=== PATIENT | male | born 1990 | race African-American/Black ===

== ENCOUNTER 2018-04-22 23:29 | Observation (INO) | payer SELFPAY ==
[2018-04-23 00:06] LABS: #Basophils 0.1 thou/uL (0.0-0.2); #Eosinphils 0.2 thou/uL (0.0-0.7); #Lymphocytes 1.3 thou/uL (1.20-3.40); #Monocytes 0.5 thou/uL (0.11-0.59); #Neutrophils 3.4 thou/uL (1.40-6.50); %Basophils 1.3 % (0.0-1.0); %Eosinophils 3.1 % (0.0-10.0); %Lymphocytes 23.5 % (21.0-51.0); %Monocytes 9.4 % (0.0-10.0); %Neutrophils 62.7 % (42.0-75.0); Hemoglobin 13.3 g/dL (14.0-18.0); Mean Corpuscular HGB CONC 33.6 g/dL (32.0-36.0); Mean Corpuscular Hemoglobin 30.2 pg (27.0-31.0); Mean Corpuscular Volume 89.7 fL (78.0-98.0); Mean Platelet Volume 7.3 fL (7.4-10.4); Platelet Count 190 thou/uL (130-400); RBC Distribution Width 10.7 % (11.5-14.5); Red Blood Cell (RBC) Count 4.39 mill/uL (4.70-6.10); White Blood Cell (WBC) Count 5.4 thou/uL (4.8-10.8)
[2018-04-23] MEDS ORDERED: Metoprolol Tartrate 5 MG/5 ML VIAL ONE ×2 (00:11→01:08)
[2018-04-23] MEDS ORDERED: Magnesium Sulfate 2 GM in Sodium Chloride 0.9% 100 ML IVPB SCH (00:15)
[2018-04-23 00:26] LABS: ALT (SGPT) 19 U/L (8-55); AST (SGOT) 17 U/L (5-34); Albumin 4.2 g/dL (3.5-5.0); Alkaline Phosphatase 70 U/L (40-150); Anion Gap 12 mmol/L (10-20); BUN (Urea Nitrogen) 9 mg/dL (8.9-20.6); Bilirubin, Total 0.9 mg/dL (0.2-1.2); CK (CPK) 201 U/L (30-200); Calc. Creatinine Clearance 0 mL/min (70-130); Calcium 9.5 mg/dL (7.8-10.44); Carbon Dioxide 25 mmol/L (22-29); Chloride 106 mmol/L (98-107); Estimated GFR-MDRD Greater than 90; Globulin 2.4 g/dL (2.4-3.5); Glucose 98 mg/dL (70-105); Magnesium 2.2 mg/dL (1.6-2.6); Potassium 3.5 mmol/L (3.5-5.1); Protein, Total 6.6 g/dL (6.0-8.3); Sodium 139 mmol/L (136-145)
[2018-04-23 00:32] LABS: CKMB 1.2 ng/mL (0-6.6); Troponin I Less than 0.010 ng/mL (< 0.028)
[2018-04-23 01:17] LABS: Bilirubin Negative (Negative); Blood, Urine Negative (Negative); Clarity CLEAR (Clear); Glucose, Urine (Dipstick) Negative (Negative); Leukocyte Negative (Negative); Nitrite Negative (Negative); Protein, Urine (Dipstick) Negative (Neg-Trace); Specific Gravity, Urine 1.007 (1.002-1.036); Urobilinogen 0.2 mg/dL (0.2-1.0)
[2018-04-23 01:23] LABS: Amphetamine Not Detected (NotDetected); Barbiturates Screen Not Detected (NotDetected); Benzodiazepine Screen Not Detected (NotDetected); Cocaine Metabolite Screen Not Detected (NotDetected); Medtox Reader # READER 4; Methadone Not Detected (NotDetected); Methamphetamine Not Detected (NotDetected); Opiate Screen Not Detected (NotDetected); Oxycodone Screen Not Detected (NotDetected); Phencyclidine (PCP) Not Detected (NotDetected); THC/Cannabinoid Screen Not Detected (NotDetected)
[2018-04-23 01:24] LABS: Medtox Control Line Valid? VALID (VALID); Tricyclic Screen Not Detected (NotDetected)
[2018-04-23 04:34] LABS: Troponin I Less than 0.010 ng/mL (< 0.028)
[2018-04-23 06:45] LABS: Troponin I Less than 0.010 ng/mL (< 0.028)
--- NOTE | 2018-04-23 10:06 | RAD ---
PORTABLE AP CHEST XRAY: DATE: 04/22/18. HISTORY: Chest pain. COMPARISON: 01/26/17. FINDINGS: Cardiac silhouette and pulmonary vasculature are within normal limits. The lungs remain clear. Ther e has been no interval change compared to the prior exam. IMPRESSION: No acute cardiopulmonary process. POS: [facility]
--- NOTE | 2018-04-23 12:41 | HP ---
CHIEF COMPLAINT: Shortness of breath. HISTORY OF PRESENT ILLNESS: This is a 27-year-old male with a prior history of SVT, who presents wit h a chief complaint of some shortness of breath and palpitations that started yesterday evening at 10 :00 p.m. when he is about to go lay down to sleep. This has been persistent and he subsequently pres ented to the emergency room this morning. The patient endorses a prior similar event when he was sheila roximately 19 years old and after which he was diagnosed with SVT. Of note, patient typically takes metoprolol for his SVT, but stopped this approximately 3 months ago because he had not had any further episodes. In the emergency department, he was found to be in atri al fibrillation with RVR and was given metoprolol IV. At the time of my evaluation, the patient has received the metoprolol IV and states that he feels significantly better. REVIEW OF SYSTEMS: As per HPI. CONSTITUTIONAL: No significant weight loss or gain over the last 6 months. Denies any recent fevers or chills over the last 2 weeks. HEENT: No new headaches, vision changes, lightheadedness or dizziness. CARDIOVASCULAR: Denies any overt chest pain, chest pressure, left-sided arm numbness or tingling or episodes of diaphoresis. Predominant symptoms or sensation o f a fast heart rate and shortness of breath. RESPIRATORY: Shortness of breath as above, but denies any recent upper respiratory infection. Denies any cough, congestion, fevers or chills. GASTROINTES TINAL: Denies any nausea, vomiting, abdominal pain, diarrhea or constipation. GENITOURINARY: Endor ses that for the last few days his urine has been slightly darker than usual, but otherwise no dysuri a or changes in urinary frequency or odor. MUSCULOSKELETAL: Denies any new myalgias or arthralgias, but does note that over the last 2 weeks, he has had some intermittent swelling of his left hand, bu t mostly on the dorsum of the hand that is worse with activity, better with elevation and rest. PAST MEDICAL HISTORY: As per above, supraventricular tachycardia. Denies any other cardiac issues t hat he is aware of. Denies any known prior surgeries. HOME MEDICATIONS: Currently none. The patient denies any new or recent over the counter medication supplements, vitamins or herbals over the last 3 weeks. ALLERGIES: No known drug allergies. FAMILY HISTORY: The patient states he has an aunt who has similar condition, but otherwise is not aw are of any cardiovascular disease that runs in his family. PHYSICAL EXAMINATION: GENERAL: Patient is awake, alert, appropriate, in no acute distress, oriented x3 and appears to be a reasonable historian. HEENT: Normocephalic, atraumatic. Equal ocular motions are intact, moist mucous membranes. CARDIOVASCULAR: S1, S2. No murmurs, rubs or gallops. No carotid bruits. Pulses 2+ bilateral upper extremities, no pitting pedal edema 2+ bilateral lower feet dorsalis pedis pulses. RESPIRATORY: Reasonable air movement. No conversational dyspnea. No wheezes, no rales or rhonchi. Clear to auscultation bilaterally. ABDOMEN: Positive bowel sounds, soft, nontender to palpation. MUSCULOSKELETAL: Moving all 4 extremities equally without difficulty or assistance. Patient does almendarez ve some mild nonpitting swelling of his left hand dorsum when compared to the right. The patient is able to completely make a fist with both hands. Denies any pain to palpation throughout his carpal a nd metacarpal joints. LABORATORY DATA AND IMAGING DATA: WBC 5.4, hemoglobin 13.3, hematocrit 39.4, platelets 190, D-dimer 0.33. Sodium 139, potassium 3.5, chloride 106, carbon dioxide 25, BUN 9, creatinine 1.07, glucose 98 , calcium 9.5, magnesium 2.2, total bilirubin 0.9, AST 17, ALT 19, alkaline phosphatase 70, creatinin e kinase 201, troponin less than 0.01 x3. Total protein 6.6, albumin 4.2. UA is essentially bland. Urine drug screen is also negative. SOCIAL HISTORY: The patient denies any alcohol, tobacco or illicit drug use. IMAGING DATA: On 04/22/2018, chest x-ray impression "no acute cardiopulmonary process." ASSESSMENT AND PLAN: This is a 27-year-old male presenting with palpitations. 1. Palpitations, atrial fibrillation/flutter. We will repeat an EKG as well at this point in time a s I do not see the previous EKG from the emergency department and this was by report. Patient will b e resumed on metoprolol with close monitoring on telemetry. Would recommend echocardiogram given alyssa t he may have been some tachyarrhythmia for longer than just 10:00 last night considering that he has been describing overwhelming fatigue for over the last 2 days. 2. Left hand swelling, unclear if this represents fluid versus injury versus a possibility of thromb oembolism. We will obtain plain film of the left hand to evaluate for the possibility of a fracture since it does become painful with increased and repetitive motion. We will also rule out VTE by obta ining a Doppler of that arm and extremity. 3. Diet: As tolerated. 4. Activity: As tolerated. 5. Deep venous thrombosis prophylaxis with Lovenox.
--- NOTE | 2018-04-23 15:28 | RAD ---
LEFT HAND THREE VIEWS: History: 27-year-old male with history of pain and swelling. FINDINGS/IMPRESSION: No fracture or dislocation or other acute process. Moderate negative ulnar variance. POS: [facility]
[2018-04-23 17:27] VITALS: BMI 27.0
[2018-04-23] MEDS: Metoprolol Tartrate 25 MG TAB PO SCH (19:49)
--- NOTE | 2018-04-23 20:25 | ULT ---
LEFT UPPER EXTREMITY VENOUS DUPLEX EXAM: History: Left arm and hand edema. FINDINGS: Real-time color doppler evaluation of the left upper extremity was performed to include the internal jugular subclavian axillary, brachial, basilic, and cephalic veins. This shows a patent deep venous s ystem. There is normal compressibility and augmentation. There is no evidence of DVT. IMPRESSION: No evidence of DVT in the left upper extremity. POS: [facility]
[2018-04-24 05:52] LABS: #Eosinphils 0.2 thou/uL (0.0-0.7); #Lymphocytes 1.7 thou/uL (1.20-3.40); #Monocytes 0.5 thou/uL (0.11-0.59); #Neutrophils 2.2 thou/uL (1.40-6.50); %Basophils 0.8 % (0.0-1.0); %Lymphocytes 37.2 % (21.0-51.0); %Monocytes 11.1 % (0.0-10.0); Anion Gap 7 mmol/L (10-20); BUN (Urea Nitrogen) 12 mg/dL (8.9-20.6); Calc. Creatinine Clearance 138 mL/min (70-130); Calcium 9.4 mg/dL (7.8-10.44); Carbon Dioxide 28 mmol/L (22-29); Chloride 104 mmol/L (98-107); Estimated GFR-MDRD 89; Glucose 84 mg/dL (70-105); Hemoglobin 13.6 g/dL (14.0-18.0); Mean Corpuscular Hemoglobin 30.8 pg (27.0-31.0); Mean Corpuscular Volume 90.4 fL (78.0-98.0); Mean Platelet Volume 7.5 fL (7.4-10.4); Platelet Count 180 thou/uL (130-400); RBC Distribution Width 10.7 % (11.5-14.5); Red Blood Cell (RBC) Count 4.41 mill/uL (4.70-6.10); Sodium 135 mmol/L (136-145); White Blood Cell (WBC) Count 4.6 thou/uL (4.8-10.8)
[2018-04-24] MEDS: Metoprolol Tartrate 25 MG TAB PO SCH (08:37)
[2018-04-24] MEDS ORDERED: Aspirin 81 mg Enteric Coated Tablet PO SCH (09:00)
[2018-04-24] MEDS ORDERED: Enoxaparin Sodium 30 MG/0.3 ML SYRINGE SC SCH (09:00)
[2018-04-24 16:20] VITALS: BP 118/66; TEMP 97.9
[2018-04-25] MEDS ORDERED: Enoxaparin Sodium 40 MG/0.4 ML SYRINGE SC SCH (09:00)
== END 2018-04-24 16:56 | disposition home or self-care (01) ==
LOC: ERS 23:29 → ERHOLD 04-23 04:12 → 2SW 04-23 04:13
PROVIDERS: ADMIT Internal Medicine; ATTEND Internal Medicine
DX: I48.91 Unspecified atrial fibrillation (principal); I48.92 Unspecified atrial flutter
CPT/HCPCS: 36415; 71045; 80048; 80053; 80306; 81003; 82550; 82553; 83735; 84443; 84484; 85025; 85379; 93005; 93306; 96361; 96365; 96372; 96375; 96376; G0378; J1650; J3475; J7050

== ENCOUNTER 2018-08-07 17:55 | Emergency (ER) | payer SELFPAY ==
[2018-08-07] MEDS ORDERED: Metoprolol Tartrate 50 MG TAB ONE (18:01)
== END 2018-08-07 18:47 | disposition home or self-care (01) ==
LOC: ERS 17:55
DX: I47.1 Supraventricular tachycardia (principal)
CPT/HCPCS: 93005

== ENCOUNTER 2018-11-06 14:30 | Emergency (ER) | payer SELFPAY ==
[2018-11-06] MEDS ORDERED: Adenosine 6 MG/2 ML VIAL ONE (14:42)
[2018-11-06 14:58] LABS: #Eosinphils 0.1 thou/uL (0.0-0.7); #Lymphocytes 1.3 thou/uL (1.20-3.40); #Monocytes 0.4 thou/uL (0.11-0.59); %Basophils 0.8 % (0.0-1.0); %Eosinophils 1.8 % (0.0-10.0); %Lymphocytes 27.8 % (21.0-51.0); %Monocytes 8.2 % (0.0-10.0); %Neutrophils 61.4 % (42.0-75.0); Hemoglobin 14.3 g/dL (14.0-18.0); Mean Corpuscular HGB CONC 32.9 g/dL (32.0-36.0); Mean Corpuscular Volume 91.2 fL (78.0-98.0); Mean Platelet Volume 7.9 fL (7.4-10.4); Platelet Count 223 thou/uL (130-400); RBC Distribution Width 10.6 % (11.5-14.5); Red Blood Cell (RBC) Count 4.77 mill/uL (4.70-6.10); White Blood Cell (WBC) Count 4.8 thou/uL (4.8-10.8)
[2018-11-06 15:28] LABS: ALT (SGPT) 17 U/L (8-55); AST (SGOT) 18 U/L (5-34); Albumin 4.2 g/dL (3.5-5.0); Alkaline Phosphatase 73 U/L (40-150); Anion Gap 11 mmol/L (10-20); BUN (Urea Nitrogen) 11 mg/dL (8.9-20.6); Bilirubin, Total 1.1 mg/dL (0.2-1.2); CK (CPK) 159 U/L (30-200); Calc. Creatinine Clearance 0 mL/min (70-130); Calcium 9.5 mg/dL (7.8-10.44); Carbon Dioxide 28 mmol/L (22-29); Chloride 104 mmol/L (98-107); Estimated GFR-MDRD Greater than 90; Globulin 2.7 g/dL (2.4-3.5); Glucose 96 mg/dL (70-105); Lipase 15 U/L (8-78); Potassium 4.1 mmol/L (3.5-5.1); Protein, Total 6.9 g/dL (6.0-8.3); Sodium 139 mmol/L (136-145)
--- NOTE | 2018-11-06 15:30 | RAD ---
PORTABLE CHEST: HISTORY: Heart palpitations. FINDINGS: The lung suazo are clear. Heart and mediastinum appear normal. Vasculature is normal. Defibrillat or pad overlying the right chest obscures detail. IMPRESSION: No acute process identified. POS: [facility]
== END 2018-11-06 15:40 | disposition home or self-care (01) ==
LOC: ERS 14:30
DX: I47.1 Supraventricular tachycardia (principal); I49.9 Cardiac arrhythmia, unspecified; Z79.899 Other long term (current) drug therapy
CPT/HCPCS: 36415; 71045; 80053; 82550; 83690; 84484; 85025; 93005; 94760; 96360; 96374; J0153

== ENCOUNTER 2019-06-13 18:55 | Emergency (ER) | payer SELFPAY ==
[2019-06-13] MEDS ORDERED: Metoprolol Tartrate 50 MG TAB ONE (19:03)
[2019-06-13 19:26] LABS: #Basophils 0.1 thou/uL (0.0-0.2); #Eosinphils 0.1 thou/uL (0.0-0.7); #Lymphocytes 1.6 thou/uL (1.20-3.40); #Monocytes 0.5 thou/uL (0.11-0.59); %Basophils 1.6 % (0.0-1.0); %Eosinophils 1.8 % (0.0-10.0); %Lymphocytes 29.5 % (21.0-51.0); %Neutrophils 57.2 % (42.0-75.0); Hemoglobin 13.8 g/dL (14.0-18.0); Mean Corpuscular HGB CONC 33.3 g/dL (32.0-36.0); Mean Corpuscular Hemoglobin 30.2 pg (27.0-31.0); Mean Corpuscular Volume 90.6 fL (78.0-98.0); Mean Platelet Volume 7.7 fL (7.4-10.4); Platelet Count 210 thou/uL (130-400); RBC Distribution Width 10.7 % (11.5-14.5); Red Blood Cell (RBC) Count 4.58 mill/uL (4.70-6.10); White Blood Cell (WBC) Count 5.3 thou/uL (4.8-10.8)
[2019-06-13 19:48] LABS: ALT (SGPT) 17 U/L (8-55); AST (SGOT) 17 U/L (5-34); Albumin 4.3 g/dL (3.5-5.0); Alkaline Phosphatase 85 U/L (40-150); Anion Gap 11 mmol/L (10-20); BUN (Urea Nitrogen) 12 mg/dL (8.9-20.6); Bilirubin, Total 0.8 mg/dL (0.2-1.2); CK (CPK) 159 U/L (30-200); Calc. Creatinine Clearance 0 mL/min (70-130); Calcium 9.6 mg/dL (7.8-10.44); Carbon Dioxide 30 mmol/L (22-29); Chloride 102 mmol/L (98-107); Estimated GFR-MDRD 84; Globulin 2.4 g/dL (2.4-3.5); Glucose 91 mg/dL (70-105); Potassium 4.5 mmol/L (3.5-5.1); Protein, Total 6.7 g/dL (6.0-8.3); Sodium 138 mmol/L (136-145)
[2019-06-13 20:24] LABS: Amphetamine Not Detected (NotDetected); Barbiturates Screen Not Detected (NotDetected); Benzodiazepine Screen Not Detected (NotDetected); Cocaine Metabolite Screen Not Detected (NotDetected); Medtox Control Line Valid? VALID (VALID); Medtox Reader # READER 4; Methadone Not Detected (NotDetected); Methamphetamine Not Detected (NotDetected); Opiate Screen Not Detected (NotDetected); Oxycodone Screen Not Detected (NotDetected); Phencyclidine (PCP) Not Detected (NotDetected); THC/Cannabinoid Screen Not Detected (NotDetected); Tricyclic Screen Not Detected (NotDetected)
--- NOTE | 2019-06-16 13:37 | EKG ---
Test Reason : CONFIRM DIAGNOSIS Blood Pressure : / mmHG Vent. Rate : 079 BPM Atrial Rate : 079 BPM P-R Int : 144 ms QRS Dur : 076 ms QT Int : 326 ms P-R-T Axes : 084 036 050 degrees QTc Int : 373 ms Normal sinus rhythm Possible Left atrial enlargement RSR' or QR pattern in V1 suggests right ventricular conduction delay Septal infarct , age undetermined Abnormal ECG No change from 08/07/2018 Confirmed by SIMRAN SCHMIDT ([id number]), editorial writer GADIEL WILLETT ([id number]) on 06/16/2019 1:36:54 PM Referred By: Confirmed By:SIMRAN SCHMIDT
== END 2019-06-13 20:57 | disposition home or self-care (01) ==
LOC: ERS 18:55
DX: I47.1 Supraventricular tachycardia (principal); Z79.899 Other long term (current) drug therapy
CPT/HCPCS: 36415; 80053; 80306; 82550; 84484; 85025; 93005

== ENCOUNTER 2021-03-27 22:50 | Emergency (ER) | payer SELFPAY ==
[2021-03-27 23:26] LABS: #Lymphocytes 1.1 thou/uL (1.20-3.40); #Monocytes 0.5 thou/uL (0.11-0.59); #Neutrophils 5.1 thou/uL (1.40-6.50); %Basophils 0.2 % (0.0-1.0); %Eosinophils 0.5 % (0.0-10.0); %Lymphocytes 16.5 % (21.0-51.0); %Monocytes 7.6 % (0.0-10.0); %Neutrophils 75.2 % (42.0-75.0); Mean Corpuscular HGB CONC 35.7 g/dL (32.0-36.0); Mean Corpuscular Hemoglobin 32.1 pg (27.0-31.0); Mean Corpuscular Volume 89.9 fL (78.0-98.0); Platelet Count 224 thou/uL (130-400); RBC Distribution Width 11.2 % (11.5-14.5); Red Blood Cell (RBC) Count 4.36 mill/uL (4.70-6.10); White Blood Cell (WBC) Count 6.7 thou/uL (4.8-10.8)
[2021-03-27 23:45] LABS: ALT (SGPT) 23 U/L (8-55); AST (SGOT) 23 U/L (5-34); Albumin 4.2 g/dL (3.5-5.0); Alkaline Phosphatase 88 U/L (40-110); Anion Gap 15 mmol/L (10-20); BUN (Urea Nitrogen) 13 mg/dL (8.9-20.6); Bilirubin, Total 0.9 mg/dL (0.2-1.2); Calc. Creatinine Clearance 0 mL/min (70-130); Calcium 9.3 mg/dL (7.8-10.44); Carbon Dioxide 23 mmol/L (22-29); Chloride 105 mmol/L (98-107); Globulin 2.7 g/dL (2.4-3.5); Glucose 92 mg/dL (70-105); Protein, Total 6.9 g/dL (6.0-8.3); Sodium 139 mmol/L (136-145)
[2021-03-28 00:06] LABS: CKMB 2.9 ng/mL (0-6.6)
[2021-03-28 01:30] LABS: Troponin I 0.072 ng/mL (< 0.028)
[2021-03-28 04:36] LABS: Troponin I 0.069 ng/mL (< 0.028)
== END 2021-03-28 08:55 | disposition home or self-care (01) ==
LOC: ERS 22:50
DX: I47.1 Supraventricular tachycardia (principal)
CPT/HCPCS: 36415; 71045; 80053; 82553; 84443; 84484; 85025; 93005

== ENCOUNTER 2021-06-04 00:36 | Inpatient (IN) | payer SELFPAY ==
[2021-06-04] MEDS ORDERED: Diltiazem 125 MG/25 ML ONE ×2 (00:40→00:41)
[2021-06-04] MEDS ORDERED: Procainamide 500 MG/ML VIAL SLOW IVP SCH (01:45)
[2021-06-04] MEDS ORDERED: PROCAINAMIDE IVPB SCH (02:15)
[2021-06-04] MEDS ORDERED: SODIUM CHLORIDE 0.9% IVPB SCH (02:15)
[2021-06-04] MEDS ORDERED: Acetaminophen 325 MG TAB PO PRN (05:41)
[2021-06-04] MEDS ORDERED: Ondansetron ODT 4 MG TAB PO PRN (05:41)
[2021-06-04] MEDS ORDERED: Diltiazem 125 MG in Sodium Chloride 0.9% 100 ML IVPB SCH (06:00)
[2021-06-04 07:23] LABS: #Eosinphils 0.1 thou/uL (0.0-0.7); #Lymphocytes 1.6 thou/uL (1.20-3.40); #Monocytes 0.6 thou/uL (0.11-0.59); #Neutrophils 4.3 thou/uL (1.40-6.50); %Basophils 0.5 % (0.0-1.0); %Eosinophils 1.1 % (0.0-10.0); %Lymphocytes 23.8 % (21.0-51.0); %Monocytes 8.5 % (0.0-10.0); %Neutrophils 66.1 % (42.0-75.0); Hemoglobin 14.4 g/dL (14.0-18.0); Mean Corpuscular HGB CONC 33.6 g/dL (32.0-36.0); Mean Corpuscular Hemoglobin 30.6 pg (27.0-31.0); Mean Corpuscular Volume 91.1 fL (78.0-98.0); Mean Platelet Volume 8.4 fL (7.4-10.4); Platelet Count 201 thou/uL (130-400); Red Blood Cell (RBC) Count 4.71 mill/uL (4.70-6.10); White Blood Cell (WBC) Count 6.5 thou/uL (4.8-10.8)
[2021-06-04 07:39] LABS: ALT (SGPT) 16 U/L (8-55); AST (SGOT) 16 U/L (5-34); Albumin 3.8 g/dL (3.5-5.0); Alkaline Phosphatase 77 U/L (40-110); Anion Gap 10 mmol/L (10-20); BUN (Urea Nitrogen) 11 mg/dL (8.9-20.6); Bilirubin, Total 1.3 mg/dL (0.2-1.2); Calc. Creatinine Clearance 0 mL/min (70-130); Calcium 9.2 mg/dL (7.8-10.44); Carbon Dioxide 27 mmol/L (22-29); Chloride 104 mmol/L (98-107); Globulin 2.8 g/dL (2.4-3.5); Glucose 103 mg/dL (70-105); Potassium 3.7 mmol/L (3.5-5.1); Protein, Total 6.6 g/dL (6.0-8.3); Sodium 137 mmol/L (136-145)
[2021-06-04] MEDS ORDERED: Metoprolol Tartrate 25 MG TAB PO SCH (09:00)
[2021-06-04 15:50] VITALS: BMI 29.0
[2021-06-04 18:46] LABS: SARS-CoV-2 PCR by NAA Not Detected (NotDetected)
[2021-06-04] MEDS: Metoprolol Tartrate 25 MG TAB PO SCH (19:46)
[2021-06-04] MEDS ORDERED: Flecainide 50 MG TAB PO SCH (21:00)
[2021-06-04 23:02] LABS: Amphetamine Not Detected (NotDetected); Barbiturates Screen Not Detected (NotDetected); Benzodiazepine Screen Not Detected (NotDetected); Cocaine Metabolite Screen Not Detected (NotDetected); Methadone Not Detected (NotDetected); Methamphetamine Not Detected (NotDetected); Opiate Screen Not Detected (NotDetected); Oxycodone Screen Not Detected (NotDetected); Phencyclidine (PCP) Not Detected (NotDetected); THC/Cannabinoid Screen Not Detected (NotDetected); Tricyclic Screen Not Detected (NotDetected)
[2021-06-05] MEDS: Metoprolol Tartrate 25 MG TAB PO SCH (09:41)
[2021-06-05 15:45] VITALS: BP 109/65; TEMP 98.2
== END 2021-06-05 19:03 | disposition home or self-care (01) | DRG 310 ==
LOC: SUATTDRO 00:36 → ERS 00:36 → ERHOLD 05:06 → 2SE 16:30
PROVIDERS: ADMIT Student in an Organized Health Care Education/Training Program; ATTEND Internal Medicine
DX: I48.0 Paroxysmal atrial fibrillation (principal); Z20.822 Contact with and (suspected) exposure to COVID-19; I47.1 Supraventricular tachycardia; F41.9 Anxiety disorder, unspecified; I10 Essential (primary) hypertension; Z79.899 Other long term (current) drug therapy
CPT/HCPCS: 36415; 80053; 80306; 83880; 84443; 84484; 85025; 93005; 93306; J2690; J7050; U0003; U0005

== ENCOUNTER 2021-07-30 11:06 | Emergency (ER) | payer SELFPAY ==
[2021-07-30] MEDS ORDERED: Ketorolac Tromethamine 30 MG/ML VIAL ONE (11:33)
[2021-07-30] MEDS ORDERED: Dexamethasone 10 MG/ML VIAL ONE (11:34)
[2021-07-30] MEDS ORDERED: Morphine 4 MG/ML VIAL ONE (11:34)
== END 2021-07-30 13:00 | disposition home or self-care (01) ==
LOC: ERS 11:06
DX: M54.42 Lumbago with sciatica, left side (principal); I47.1 Supraventricular tachycardia; I48.91 Unspecified atrial fibrillation; I49.9 Cardiac arrhythmia, unspecified; Z79.899 Other long term (current) drug therapy
CPT/HCPCS: 96374; 96375; J1100; J1885; J2270